=== PATIENT | female | born 1995 | race Caucasian/White ===

== ENCOUNTER 2020-03-12 19:09 | Outpatient (CLI) | payer OTHER | END 2020-03-13 16:00 | disposition home or self-care (01) | LOC: OBS/DEL 19:09 | DX: O26.892 Other specified pregnancy related conditions, second trimester (principal); R10.2 Pelvic and perineal pain ==

== ENCOUNTER 2020-07-03 13:40 | Outpatient (CLI) | payer OTHER ==
[2020-07-03] MEDS ORDERED: PRENATAL TABLE1 EAC1 PO (13:42)
== END 2020-07-04 08:56 | disposition home or self-care (01) ==
LOC: OBS/DEL 13:40
PROVIDERS: ATTEND Obstetrics & Gynecology
DX: O47.1 False labor at or after 37 completed weeks of gestation (principal)

== ENCOUNTER 2020-07-14 04:56 | Inpatient (IN) | payer OTHER ==
[~2020-07-14] VITALS: Ht 175.3 cm; Wt 71.2 kg
[~2020-07-14 04:56] MED LIST: PRENATAL TABLE1 EAC1 PO
== END 2020-07-16 11:32 | disposition home or self-care (01) | DRG 807 ==
LOC: LDR 04:56 → OB/GYN 04:56
PROVIDERS: ADMIT Obstetrics & Gynecology; ATTEND Obstetrics & Gynecology
PROC: 10E0XZZ Delivery of Products of Conception, External Approach (ICD-10-PCS; principal; 2020-07-14)
PROC: 0KQM0ZZ Repair Perineum Muscle, Open Approach (ICD-10-PCS; 2020-07-14)
PROC: 3E0P7VZ Introduction of Hormone into Female Reproductive, Via Natural or Artificial Opening (ICD-10-PCS; 2020-07-14)
PROC: 3E033VJ Introduction of Other Hormone into Peripheral Vein, Percutaneous Approach (ICD-10-PCS; 2020-07-14)
PROC: 10907ZC Drainage of Amniotic Fluid, Therapeutic from Products of Conception, Via Natural or Artificial Opening (ICD-10-PCS; 2020-07-14)
PROC: 4A1HXCZ Monitoring of Products of Conception, Cardiac Rate, External Approach (ICD-10-PCS; 2020-07-14)
DX: O70.1 Second degree perineal laceration during delivery (principal); Z37.0 Single live birth; Z3A.39 39 weeks gestation of pregnancy; Z20.828 Contact with and (suspected) exposure to other viral communicable diseases

== ENCOUNTER 2021-12-31 08:00 | Outpatient (CLI) | payer OTHER | END 2021-12-31 08:30 | disposition home or self-care (01) | LOC: PPH VACUNA 08:00 | PROVIDERS: ATTEND Emergency Medicine Pediatric Emergency Medicine | DX: Z23 Encounter for immunization (principal) ==

== ENCOUNTER 2022-01-15 16:27 | Emergency (ER) | payer OTHER ==
[~2022-01-15] VITALS: Ht 175.3 cm; Wt 55.8 kg
== END 2022-01-15 19:50 | disposition home or self-care (01) ==
LOC: ER 16:27
DX: R10.11 Right upper quadrant pain (principal); N20.0 Calculus of kidney; Z20.822 Contact with and (suspected) exposure to COVID-19

== ENCOUNTER 2022-02-25 12:59 | Outpatient (CLI) | payer OTHER | END 2022-02-25 13:00 | disposition home or self-care (01) | LOC: LAB 12:59 | PROVIDERS: ATTEND Obstetrics & Gynecology | DX: N91.0 Primary amenorrhea (principal) ==

== ENCOUNTER → 2022-02-27 08:00 | Outpatient (CLI) | payer OTHER | END | disposition home or self-care (01) | LOC: LAB 08:00 | PROVIDERS: ATTEND Obstetrics & Gynecology | DX: N91.2 Amenorrhea, unspecified (principal) ==

== ENCOUNTER 2022-06-09 15:52 | Emergency (ER) | payer OTHER ==
[~2022-06-09] VITALS: Ht 175.3 cm; Wt 63.5 kg
== END 2022-06-09 19:39 | disposition home or self-care (01) ==
LOC: ER 15:52
DX: O20.9 Hemorrhage in early pregnancy, unspecified (principal); Z3A.19 19 weeks gestation of pregnancy

== ENCOUNTER 2022-07-20 19:39 | Outpatient (CLI) | payer OTHER ==
[2022-07-20] MEDS ORDERED: PRENA1 TRUE CO1 EACH PO (20:54)
== END 2022-07-21 08:39 | disposition home or self-care (01) ==
LOC: OBS/DEL 19:39
PROVIDERS: ATTEND Obstetrics & Gynecology
DX: O26.892 Other specified pregnancy related conditions, second trimester (principal); Z3A.25 25 weeks gestation of pregnancy; M54.9 Dorsalgia, unspecified

== ENCOUNTER 2022-08-25 15:46 | Outpatient (CLI) | payer OTHER ==
[~2022-08-25 15:46] MED LIST changes: +PRENA1 TRUE CO1 EACH PO
[2022-08-25] MEDS ORDERED: PRENATAL + DHA1 EAC1 PO (20:14)
== END 2022-08-26 09:08 | disposition home or self-care (01) ==
LOC: OBS/DEL 15:46
PROVIDERS: ATTEND Obstetrics & Gynecology
DX: O26.833 Pregnancy related renal disease, third trimester (principal); Z3A.30 30 weeks gestation of pregnancy

== ENCOUNTER 2022-10-21 11:45 | Inpatient (IN) | payer OTHER ==
[~2022-10-21] VITALS: Ht 175.3 cm; Wt 71.7 kg
[~2022-10-21 11:45] MED LIST changes: +PRENATAL + DHA1 EAC1 PO
[2022-10-25] MEDS ORDERED: PRENATAL PLUS1 EAC1 PO (07:33)
[2022-10-26] MEDS ORDERED: PROFERRIN-FORT1 EACH (15:57)
[2022-10-27] MEDS ORDERED: CEPHALEXIN500 MG PO (07:11)
[2022-10-27] MEDS ORDERED: IBUPROFEN800 MG PO (07:11)
[2022-10-27] MEDS ORDERED: SENOKOT-S TABL1 EACH PO (07:12)
== END 2022-10-27 13:16 | disposition home or self-care (01) | DRG 807 ==
LOC: OB/GYN 11:45 → LDR 10-25 04:51 → OB/GYN 10-25 04:51
PROVIDERS: ADMIT Obstetrics & Gynecology; ATTEND Obstetrics & Gynecology
PROC: 10E0XZZ Delivery of Products of Conception, External Approach (ICD-10-PCS; principal; 2022-10-25)
PROC: 0UQG7ZZ Repair Vagina, Via Natural or Artificial Opening (ICD-10-PCS; 2022-10-25)
PROC: 4A1HXCZ Monitoring of Products of Conception, Cardiac Rate, External Approach (ICD-10-PCS; 2022-10-25)
DX: O71.4 Obstetric high vaginal laceration alone (principal); Z37.0 Single live birth; Z3A.39 39 weeks gestation of pregnancy; Z20.822 Contact with and (suspected) exposure to COVID-19

== ENCOUNTER 2023-04-18 06:40 | Day surgery (SDC) | payer OTHER ==
[~2023-04-18 06:40] MED LIST changes: +CEPHALEXIN500 MG PO; +IBUPROFEN800 MG PO; +PRENATAL PLUS1 EAC1 PO; +PROFERRIN-FORT1 EACH; +SENOKOT-S TABL1 EACH PO
== END 2023-04-18 16:55 | disposition home or self-care (01) ==
LOC: CIR.AMB 06:40 → OB/GYN 09:45 → EDSTATUS 09:45 → CIR.AMB 11:00
PROVIDERS: ATTEND Obstetrics & Gynecology
DX: N70.91 Salpingitis, unspecified (principal); R10.2 Pelvic and perineal pain; Z20.822 Contact with and (suspected) exposure to COVID-19; E78.00 Pure hypercholesterolemia, unspecified